=== PATIENT | female | born 1995 | race American Indian/Alaskan Native ===

== ENCOUNTER 2020-01-16 04:39 | Inpatient (IN) | payer MEDICAID ==
[2020-01-16] MEDS ORDERED: LACTATED RINGERS 1,000 ML ONE (07:21)
[2020-01-16] MEDS ORDERED: LIDOCAINE (2%) 20 MG/1 ML VIAL 20 ML MDV INFILTRATI ONE (07:26)
[2020-01-16] MEDS ORDERED: TERBUTALINE 1 MG/1 ML INJ SUB-Q PRN (07:26)
[2020-01-16] MEDS ORDERED: ePHEDrine SULFATE 50 MG/1 ML INJ IV PRN (07:26)
[2020-01-16] MEDS ORDERED: AMPICILLIN/NS 2 GM/100 ML 2 GM/100 ML BAG IV ONE (07:26)
--- NOTE | 2020-01-16 07:28 | Ultrasound Report ---
US OB BPP wo non-stress, US OB limited INDICATION / CLINICAL INFORMATION: BPP. COMPARISON: None available. FINDINGS: breathing movement = 2 Gross body movement = 2 tone = 2 Qualitative amniotic fluid volume = 0 Total biophysical score = 6/8 Amniotic fluid index is 4.6 cm. Presentation is Cephalic. heart rate is 129 beats per minute. IMPRESSION: biophysical profile = 09/30 AAYUSH is decreased at 4.6 cm. Signer Name: Bradford Augustin MD Signed: 01/16/2020 7:24 AM Workstation Name: [id number]
--- NOTE | 2020-01-16 07:36 | History and Physical Report ---
History of Present Illness Date of examination: 01/16/20 Date of admission: 01/16/2020 Chief complaint: Contractions History of present illness: 24 year old being admitted to L&D of augmentation of labor due to oligohyramnios at term. Patient received care at [facility] and records are available. LMP 04/19/2019. EDC 01/24/2020. significant for the following: GBS positive, UTI (treated and RADHAMES negative), vitamin D deficiency (supplemented with vitamin D). labs are as follows: O+, antibody screen negative, rubella immune, RPR nonreactive, HIV negative, hepatitis B surface antigen negative, HSV 2 negative, gonorrhea negative, chlamydia negative, trichomonas negative, AFP negative, GBS positive. Past History Past Medical History: no pertinent history Past Surgical History: no surgical history [employer] History: denies: chlamydia, gonorrhea, hepatitis B, hepatitis C, herpes, HIV, syphilis, trichomonas Family/Genetic History: hypertension Social history: lives with family, full code. denies: smoking, alcohol abuse, prescription drug abuse, IV drug use - Obstetrical History Expected Date of Delivery: 01/24/20 Actual Gestation: 38 Week(s) 6 Day(s) : 1 Para: 0 Hx # Term Pregnancies: 0 Number of Pregnancies: 0 Spontaneous Abortions: 0 Induced : 0 Number of Living Children: 0 Medications and Allergies Allergies Allergy/AdvReac Type Severity Reaction Status Date / Time No Known Allergies Allergy Unverified 04/19/15 23:59 Home Medications Medication Instructions Recorded Confirmed Last Taken Type Azithromycin [Zithromax TAB] 1,000 mg PO QDAY #2 tablet 04/20/15 Unknown Rx Active Meds: Active Medications Ephedrine Sulfate (Ephedrine Sulfate) 10 mg IV Q2M PRN PRN Reason: Hypotension Fentanyl (Sublimaze) 100 mcg IV Q2H PRN PRN Reason: Pain,Severe (7-10) LABOR PAIN Lactated Ringer's (Lactated Ringers) 1,000 mls @ 125 mls/hr IV DIRECT CM Ampicillin Sodium (Ampicillin/Ns 2 Gm/100 Ml) 2 gm in 100 mls @ 100 mls/hr IV ONCE ONE; Protocol Stop: 01/16/20 08:25 Ampicillin Sodium (Ampicillin/Ns 1 Gm/50 Ml) 1 gm in 50 mls @ 100 mls/hr IV Q4HR CM; Protocol Lidocaine (Xylocaine 2%) 20 ml INFILTRATI ONCE ONE Stop: 01/16/20 07:27 Mineral Oil (Mineral Oil) 30 ml PO QHS PRN PRN Reason: Constipation Terbutaline Sulfate (Brethine) 0.25 mg SUB-Q ONCE PRN PRN Reason: Hyperstimulation/Hypertonicity Review of Systems All systems: negative (contractions) - Vital Signs Vital signs: Vital Signs Temp Pulse Resp BP 97.8 F 74 18 118/71 01/16/20 05:00 01/16/20 05:00 01/16/20 05:00 01/16/20 05:00 Temp Pulse Resp BP Pulse Ox 97.8 F 74 18 118/71 01/16/20 05:00 01/16/20 05:07 01/16/20 05:00 01/16/20 05:07 AAYUSH 4.6 cm; BPP 6/8 - Physical Exam Abdomen: Positive: normal appearance, soft. Negative: distention, tenderness, guarding Genitourinary (Female): Positive: normal external genitalia, normal perenium. Negative: perineal/vulvar lesions (no lesions seen on careful exam upon admissio n) Vagina: Positive: normal moisture Uterus: Positive: enlarged. Negative: tender Anus/Rectum: Positive: normal perianal skin Extremities: Positive: normal. Negative: tenderness - Obstetrical FHR: category 2 FHR comments: Normal baseline FHR, moderate variability, accelerations; occasional brief variable FHR deceleration with rapid return to baseline. Uterine Contraction Monitor Mode: External Cervical Dilatation: 1 Cervical Effacement Percentage: 20 station: -3 Uterine Contraction Pattern: Irregular Uterine Contraction Intensity: Mild Results All other labs normal. Assessment and Plan A: at 38 weeks, 6 days gestation. Oligohydramnios. GBS positive. P: Admit. Continuous EFM. Augmentation of labor. GBS prophylaxis.
[2020-01-16] MEDS ORDERED: DINOPROSTONE 10 MG VAG SUPP VG NR (07:40)
[2020-01-16 07:51] LABS: Hematocrit 39.1 % (30.3-42.9); Hemoglobin 13.5 gm/dl (10.1-14.3); Mean Corpuscular HGB Conc 35 % (30-34); Mean Corpuscular Volume 94 fl (79-97); Platelet Count 157 K/mm3 (140-440); Red Blood Count 4.16 M/mm3 (3.65-5.03); Red Cell Distribution Width 13.7 % (13.2-15.2)
[2020-01-16] MEDS ORDERED: AMPICILLIN/NS 1 GM/50 ML 1 GM/50 ML BAG IV SCH (11:30)
[2020-01-16] MEDS: LACTATED RINGERS 1,000 ML IV SCH ×2 (13:28→20:28)
[2020-01-16] MEDS: fentaNYL 100 MCG/2 ML INJ IV PRN ×2 (20:27→21:40)
[2020-01-16] MEDS ORDERED: MINERAL OIL 30 ML ORAL LIQD PO PRN (22:00)
[2020-01-16] MEDS ORDERED: BUTORPHANOL 2 MG/1 ML INJ IV PRN (23:23)
[2020-01-17] MEDS: LACTATED RINGERS 1,000 ML IV SCH (01:27)
[2020-01-17] MEDS ORDERED: LIDOCAINE (2%) 20 MG/1 ML VIAL 20 ML MDV INFILTRATI ONE (02:24)
[2020-01-17] MEDS: fentaNYL 100 MCG/2 ML INJ IV PRN (02:34)
[2020-01-17] MEDS ORDERED: diphenhydrAMINE 25 MG CAP PO PRN (03:03)
[2020-01-17] MEDS ORDERED: BENZOCAINE/MENTHOL 20/0.5% TOP SPRAY 56 GM TP PRN (03:03)
[2020-01-17] MEDS ORDERED: PROMETHAZINE 25 MG RECT SUPP PR PRN (03:03)
[2020-01-17] MEDS ORDERED: LANOLIN/ZINC/DIMETHICONE (LANSINOH) 7 GM TP PRN ×2 (03:03)
[2020-01-17] MEDS ORDERED: MAGNESIUM HYDROXIDE (MOM) ORAL LIQD UDC PO PRN (03:03)
[2020-01-17] MEDS ORDERED: ONDANSETRON 4 MG/2 ML INJ IV PRN (03:03)
[2020-01-17] MEDS ORDERED: PROMETHAZINE 25 MG TAB PO PRN (03:03)
[2020-01-17] MEDS ORDERED: WITCH HAZEL/ GLYCERIN PAD TP PRN (03:03)
[2020-01-17] MEDS ORDERED: METHYLERGONOVINE MALEATE 0.2 MG/ML VIAL IM PRN (03:03)
--- NOTE | 2020-01-17 03:03 | Procedure Note ---
OB Delivery Note - Delivery Date of Delivery: 01/17/20 Surgeon: KAVIN ANNE - Vaginal Delivery presentation: vertex Delivery induction: cervidil Route of delivery: Delivery placenta: spontaneous Delivery cord: 3 umbilical vessels Episiotomy: none Delivery laceration: 2nd degree Delivery repair: vicryl Anesthesia: local Delivery comments: PT is s/p precipitous by the RN. See RN charting for details. Placenta delivered spontaneously and was delivered in its entirety. Second-degree laceration repaired with 2-0 Vicryl. Good hemostasis throughout. Mother and baby stable. - Infant A at 1 minute: 7 at 5 minutes: 9 Infant Gender: Male
[2020-01-17] MEDS: IBUPROFEN 600 MG TAB PO SCH ×3 (03:58→17:49)
[2020-01-17] MEDS ORDERED: OXYTOCIN DRIP 30 UNITS/500 ML BAG IV SCH (04:00)
[2020-01-17 16:38] LABS: Hematocrit 26.9 % (30.3-42.9); Hemoglobin 9.2 gm/dl (10.1-14.3)
[2020-01-18] MEDS: IBUPROFEN 600 MG TAB PO SCH ×2 (06:50→17:29)
[2020-01-18] MEDS: oxyCODONE /ACETAMINOPHEN 5-325MG TAB PO PRN (10:31)
--- NOTE | 2020-01-18 10:57 | Progress Note ---
Assessment and Plan A: Day 1 Asymptomatic Anemia P: Follow routine orders FeSO4 325mg PO BID Encouraged increased ambulation D/C in the a.m. Subjective - Subjective Date of service: 01/18/20 Principal diagnosis: s/p Day 1 Patient reports: appetite normal, voiding normally, pain well controlled, flatus, ambulating normally, other (denies any fatigue, dizziness, light- headness, SOB) [place]: doing well, bottle feeding Objective - Vital Signs Latest vital signs: Vital Signs Temp Pulse Resp BP BP Pulse Ox 01/18/20 10:31 20 01/18/20 08:25 98.2 F 107 H 20 120/75 01/18/20 06:50 18 01/17/20 23:48 98.1 F 105 H 18 132/73 97 01/17/20 16:00 98.9 F 98 H 20 100/66 Intake and Output 01/17/20 01/18/20 01/18/20 22:59 06:59 14:59 Intake Total 120 360 320 Output Total 600 Balance -480 360 320 Intake: Oral 120 320 Intake, Free Water 360 Output: Urine 600 Void 600 Other: Total, Intake Amount 120 320 Total, Output Amount 600 # Voids Void 2 1 - Exam Breasts: Present: normal Cardiovascular: Present: Regular rate, Normal S1, Normal S2 Lungs: Present: Clear to auscultation, Normal air movement Abdomen: Present: normal appearance, soft, normal bowel sounds Uterus: Present: normal, firm, fundal height below umbilicus Extremities: Present: normal - Labs Labs: Abnormal lab results 01/17/20 Range/Units 16:18 Hgb 9.2 L D (10.1-14.3) gm/dl Hct 26.9 L D (30.3-42.9) %
--- NOTE | 2020-01-18 11:01 | Discharge Summary ---
Providers - Providers Date of Admission: 01/16/20 07:26 Date of discharge: 01/19/20 Attending physician: BRANDO ABBASI JR, MD Primary care physician: BRANDO ABBASI JR, MD Hospitalization Reason for admission: induction of labor Delivery: Episiotomy: none Laceration: 2nd degree (repaired) Other procedures: none complications: none baby: male Condition at discharge: Good Disposition: DC-01 TO HOME OR SELFCARE Plan - Provider Discharge Summary Activity: routine, no sex for 6 weeks, no heavy lifting 4 weeks, no strenuous exercise Diet: routine Instructions: routine Additional instructions: [] Smoking cessation referral if applicable(refer to patient education folder for contact #) [] Refer to [facility]'s [facility] Center Booklet Call your doctor immediately for: * Fever > 100.5 * Heavy vaginal bleeding ( >1 pad per hour) * Severe persistent headache * Shortness of breath * Reddened, hot, painful area to leg or breast * Drainage or odor from incision. * Keep incision clean and dry at all times and follow doctor's instructions regarding bathing/showering - Follow up plan Follow up: BRANDO ABBSAI JR, MD [Primary Care Provider] - 6 Weeks
[2020-01-18] MEDS: FERROUS SULFATE 325 MG TAB PO SCH ×2 (17:29→21:51)
[2020-01-19] MEDS: IBUPROFEN 600 MG TAB PO SCH (05:14)
[2020-01-19] MEDS: oxyCODONE /ACETAMINOPHEN 5-325MG TAB PO PRN (06:27)
[2020-01-19 08:49] VITALS: BP 110/61
[2020-01-19] MEDS: FERROUS SULFATE 325 MG TAB PO SCH (09:37)
== END 2020-01-19 12:45 | disposition home or self-care (01) | DRG 775 ==
LOC: TRG 04:39 → APU 04:41 → LD 07:26 → TRG 07:26 → OB 01-17 05:58
PROVIDERS: ADMIT Obstetrics & Gynecology; ATTEND Obstetrics & Gynecology
PROC: 10E0XZZ Delivery of Products of Conception, External Approach (ICD-10-PCS; principal; 2020-01-17)
PROC: 3E0P7VZ Introduction of Hormone into Female Reproductive, Via Natural or Artificial Opening (ICD-10-PCS; 2020-01-17)
PROC: 0KQM0ZZ Repair Perineum Muscle, Open Approach (ICD-10-PCS; 2020-01-17)
DX: O41.03X0 Oligohydramnios, third trimester, not applicable or unspecified (principal); Z37.0 Single live birth; Z3A.38 38 weeks gestation of pregnancy; Z20.828 Contact with and (suspected) exposure to other viral communicable diseases; O99.824 Streptococcus B carrier state complicating childbirth; O99.284 Endocrine, nutritional and metabolic diseases complicating childbirth; E55.9 Vitamin D deficiency, unspecified; O70.1 Second degree perineal laceration during delivery; O62.3 Precipitate labor; O90.81 Anemia of the puerperium; D64.9 Anemia, unspecified
CPT/HCPCS: 36415; 59025; 59200; 76815; 76819; 85014; 85018; 85027; 86850; 86900; 86901; G0378; J0595; J3010; J7120; U0003